=== PATIENT | male | born 2000 | race Caucasian/White ===

== ENCOUNTER 2021-12-20 03:15 | Emergency (ER) | payer MEDICAID ==
[~2021-12-20] VITALS: Ht 180.3 cm; Wt 79.4 kg
[2021-12-20 03:15] VITALS: BP 132/76
--- NOTE | 2021-12-20 03:15 | NUR ---
PT BIB [facility], PREBOOK. TAKEN TO CHAIR
[2021-12-20 03:20] VITALS: BP 132/76
--- NOTE | 2021-12-20 03:32 | NUR ---
Patient being evaluated by physician at bedside.
--- NOTE | 2021-12-20 03:48 | NUR ---
PATIENT BIB [facility] [employer] [facility]. PATIENT EXAMINED BY DR. SCHROEDER . PATIENT MEDICALLY CLEARED AND RELEASED IN CUSTODY IN STABLE CONDITION. ORIGINAL PRE-BOOK FORM GIVEN TO OFFICER DELLA #[id number].
== END 2021-12-20 03:48 ==
LOC: MED 03:15
DX: Z02.89 Encounter for other administrative examinations (principal); V89.2XXA Person injured in unspecified motor-vehicle accident, traffic, initial encounter; Y93.89 Activity, other specified; Y92.89 Other specified places as the place of occurrence of the external cause; Y99.8 Other external cause status
CPT/HCPCS: 99283